=== PATIENT | female | born 1950 | race Caucasian/White ===

== ENCOUNTER 2016-12-16 17:22 | Emergency (ER) | payer OTHER ==
[~2016-12-16] VITALS: Ht 167.6 cm; Wt 62.0 kg
[~2016-12-16 17:22] MED LIST: BACTRIM DS1 TAB PO; EFFEXOR XR75 MG PO; XANAX0.25 MG PO
[2016-12-16] MEDS ORDERED: ALPRAZOLAM0.5 M2 PO (18:21)
[2016-12-16 20:35] LABS: HEMATOCRIT 43.6 % (37.0-47.0); HEMOGLOBIN 13.9 g/dl (12.0-16.0); IMMATURE GRANULOCYTES 0.2 % (0.0-1.0); MEAN CELL VOLUME 90.3 fL CALC (80.0-100.0); MEAN CORPUSCULAR HGB 28.8 pG CALC (26.0-32.0); MEAN CORPUSCULAR HGB CONC 31.9 g/L CALC (32.0-36.0); NEUT# 4.45 thou/uL (2.00-7.15); RED BLOOD COUNT 4.83 mill/uL (4.20-5.60)
[2016-12-16 20:59] LABS: ALBUMIN 4.5 g/dL (3.2-5.0); ALKALINE PHOSPHATASE 90 u/l (38-126); ANION GAP 15 (6-22 (CALC)); BILIRUBIN, TOTAL 0.4 mg/dL (0.0-1.4); BUN 13 mg/dL (8-23); BUN/CREATININE RATIO 20 (12-20 (CALC)); CALCIUM 9.8 mg/dL (8.4-10.2); CARBON DIOXIDE 27 mmol/l (22-30); CHLORIDE 103 mmol/l (95-108); CREATININE 0.7 mg/dL (0.5-1.0); GFR > 60 ML/MIN (>=60 (CALC)); GFR FOR AFR.AMER. > 60 ML/MIN (>=60 (CALC)); GLUCOSE 83 mg/dL (82-115); POTASSIUM 4.1 mmol/l (3.5-5.1); SGOT/AST 19 u/l (9-36); SGPT/ALT 25 u/l (11-66); SODIUM 142 mmol/l (137-146)
[2016-12-16] MEDS ORDERED: KEFLEX500 M1 PO (22:26)
[2016-12-16] MEDS ORDERED: PERCOCET 5/325M1 TAB PO (22:26)
[2016-12-16 22:35] VITALS: BP 122/74
== END 2016-12-16 22:35 | disposition home or self-care (01) | DRG 607 ==
LOC: ED 17:22
PROVIDERS: Emergency Medicine
DX: R22.31 Localized swelling, mass and lump, right upper limb (principal); M79.644 Pain in right finger(s)

== ENCOUNTER 2017-10-10 01:52 | Inpatient (IN) | payer OTHER, MEDICARE ==
[~2017-10-10] VITALS: Ht 167.6 cm; Wt 62.7 kg
[~2017-10-10 01:52] MED LIST changes: +ALPRAZOLAM0.5 M2 PO; +KEFLEX500 M1 PO; +PERCOCET 5/325M1 TAB PO
--- NOTE | 2017-10-10 02:07 | NUR ---
PT. TO ROOM 10 VIA EMS WITH C/O AWAKINING WITH A MIDSTERNAL CP. EMS ADMINISTERED ASA AND NITROGLYCERIN. PT. STATES HER CP IS COMPLETLY RESOLVED OF THIS TIME.
[2017-10-10 02:20] LABS: HEMATOCRIT 42.1 % (37.0-47.0); HEMOGLOBIN 13.6 g/dl (12.0-16.0); IMMATURE GRANULOCYTES 0.2 % (0.0-1.0); MEAN CELL VOLUME 90.3 fL CALC (80.0-100.0); MEAN CORPUSCULAR HGB 29.2 pG CALC (26.0-32.0); MEAN CORPUSCULAR HGB CONC 32.3 g/L CALC (32.0-36.0); NEUT# 4.85 thou/uL (2.00-7.15); RED BLOOD COUNT 4.66 mill/uL (4.20-5.60); RED CELL DISTRI WIDTH 12.1 % (11.5-15.5)
[2017-10-10 02:26] LABS: ALBUMIN 3.9 g/dL (3.2-5.0); ALKALINE PHOSPHATASE 98 u/l (38-126); AMYLASE 41 u/l (30-110); ANION GAP 14 (6-22 (CALC)); BILIRUBIN, TOTAL 0.2 mg/dL (0.0-1.4); BUN 19 mg/dL (8-23); BUN/CREATININE RATIO 23 (12-20 (CALC)); CARBON DIOXIDE 27 mmol/l (22-30); CHLORIDE 105 mmol/l (95-108); CREATININE 0.9 mg/dL (0.5-1.0); GFR > 60 ML/MIN (>=60 (CALC)); GFR FOR AFR.AMER. > 60 ML/MIN (>=60 (CALC)); LIPASE 41 u/l (23-300); SGOT/AST 31 u/l (9-36); SGPT/ALT 21 u/l (11-66); SODIUM 142 mmol/l (137-146); TOTAL PROTEIN 6.5 g/dL (6.3-8.2)
[2017-10-10 02:39] LABS: MYOGLOBIN 20 ng/mL (0 - 62)
[2017-10-10 03:04] LABS: URINE BILIRUBIN - DIPSTICK NEGATIVE (NEGATIVE); URINE BLOOD DIPSTICK MODERATE (NEGATIVE); URINE COLOR YELLOW; URINE GLUCOSE - DIPSTICK NEGATIVE (NEGATIVE); URINE KETONE NEGATIVE (NEGATIVE); URINE LEUK ESTERASE NEGATIVE (NEGATIVE); URINE NITRITE - DIPSTICK NEGATIVE (Negative); URINE PH 6.5 (4.5-8.0); URINE PROTEIN - DIPSTICK TRACE mg/dL (NEG-TRACE); URINE SPECIFIC GRAVITY 1.025; URINE UROBILINOGEN - DIPSTICK 0.2 E.U./dL (0.2)
[2017-10-10 03:12] LABS: URINE CLARITY SL CLOUDY
[2017-10-10 03:27] LABS: URINE AMORPH SEDIMENT FEW hpf (NONE-FEW); URINE BACTERIA FEW hpf; URINE FINE GRAN CAST FEW lpf; URINE HYALINE CAST FEW lpf (NONE-RARE); URINE SQUAMOUS EPITHELIAL CELL RARE EPI/hpf (0-FEW); URINE WBC 0-2 WBC/hpf (0-5)
--- NOTE | 2017-10-10 04:05 | NUR ---
PT GIVEN LOPRESSOR P.O. AFTER MED/SURG NOT COMFORTABLE ACCEPTING PT WITH 177/84 BP. ATTEMPTING TO LOWER SYTOLIC PRESSURE SLOWLY.
[2017-10-10 04:15] VITALS: BP 123/73
--- NOTE | 2017-10-10 04:15 | NUR ---
PT ARRIVED TO FLOOR WITH ER STAFF. PT AMBULATED TO BED. WEIGHT & VITALS OBTAINED. PT ORIENTED TO ROOM AND CALL LIGHT SYSTEM. PT DENIES ANY PAIN OR DISCOMFORT. RESP EVEN AND UNLABORED; NO DISTRESS NOTED. FAMILY AT BEDSIDE. PT ENCOURAGED TO CALL FOR ASSISTANCE. NITROL OINTMENT ON LEFT SIDE OF CHEST NOTED. FREQUENT ROUNDS MADE. CALL LIGHT WITHIN REACH.
--- NOTE | 2017-10-10 04:26 | NUR ---
Pt transported to floor room 272 via cot. Telemetry on. Family accompanied to room.
[2017-10-10 06:21] VITALS: BP 133/68
--- NOTE | 2017-10-10 07:30 | NUR ---
REPORT RECEIVED FROM NIGHT NURSE. PT.APPEARS TO BE SLEEPING AT THIS TIME. CALL LIGHT IS AT SIDE AND NO S/S OF DISTRESS NOTED AT THIS TIME.
[2017-10-10 08:00] VITALS: BP 113/67
[2017-10-10 09:10] LABS: CHOLESTEROL HDL RATIO 3.6 (<4.4 (CALC))
[2017-10-10 11:29] VITALS: BP 155/76
--- NOTE | 2017-10-10 11:33 | NUR ---
CRITICAL CALLED FROM LAB BY MICHAEL FOR CRITICAL TROPONIN LEVEL OF 0.165. AND ALMA GREGORY ARE BOTH ON UNIT FLOOR AND WERE NOTIFIED @1115. V/S ASSESSED BP155/76,HR78. PT.IS ASYMPTOMATIC. BRI IS IN W/PT.AT THIS TIME. EKG ORDERED AND CONSULTATION FOR HAS BEEN PLACED. FAMILY IS AT BEDSIDE.
--- NOTE | 2017-10-10 11:50 | NUR ---
ORDERED LOVONOX, ASPIRIN FOR PT.AND LOPRESSOR AND THEN INSTRUCTED TO HOLD THE LOPRESSOR AT THIS TIME.
--- NOTE | 2017-10-10 12:43 | NUR ---
POC DISCUSSED W/PT. AND PT.MEDICATED W/LOPRESSOR FOR BP 155/76 ORDERED.HR78 AT THIS TIME. PT.ASSISTED AMBULATING TO RESTROOM AND BACK TO BED. FAMILY AT BEDSIDE.
--- NOTE | 2017-10-10 13:55 | NUR ---
LAB CALLED W/CRITICAL TROPONIN LEVEL OF 0.161 TO JUNIOR ZAMORA. BRI MARQUEZ NOTIFIED. PT.REMAINS ASYMPTOMATIC AT THIS TIME. FAMILY IS AT BEDSIDE
[2017-10-10 14:49] VITALS: BP 152/75
--- NOTE | 2017-10-10 15:07 | NUR ---
CRITICAL LAB RESULTS CALLED FROM [facility] IN LAB. TROPONIN 0.161, BRI MARQUEZ AND LYNETTE PACHECO NOTIFIED.
--- NOTE | 2017-10-10 15:52 | NUR ---
PT.LEFT THE FLOOR VIA STRETCHER ACCOMPANIED BY [facility] UNIT STAFF AND FAMILY. PT.WAS IN STABLE CONDITION AT THE TIME OF LEAVING THE FLOOR. REPORT CALLED TO LENKA OF [facility].
== END 2017-10-10 15:38 | disposition short-term general hospital (02) | DRG 282 ==
LOC: ED 01:52 → ED-I 02:25 → ED 02:25 → ED-I 02:45 → ED 02:54 → MS2 02:55
PROVIDERS: Emergency Medicine; Nurse Practitioner Family; ADMIT Internal Medicine; ATTEND Internal Medicine
DX: I21.4 Non-ST elevation (NSTEMI) myocardial infarction (principal); E78.5 Hyperlipidemia, unspecified; I16.0 Hypertensive urgency; I10 Essential (primary) hypertension; F17.210 Nicotine dependence, cigarettes, uncomplicated; G89.4 Chronic pain syndrome; F41.9 Anxiety disorder, unspecified; M62.838 Other muscle spasm; S19.9XXS Unspecified injury of neck, sequela; X58.XXXS Exposure to other specified factors, sequela
CPT/HCPCS: J1650

== ENCOUNTER 2017-10-23 23:39 | Observation (INO) | payer OTHER ==
[~2017-10-23] VITALS: Ht 167.6 cm; Wt 62.7 kg
[2017-10-23] MEDS ORDERED: ASPIRIN81 MG PO (23:56)
[2017-10-23] MEDS ORDERED: ATORVASTATIN CA80 MG PO (23:57)
[2017-10-23] MEDS ORDERED: BRILINTA90 MG PO (23:58)
[2017-10-23] MEDS ORDERED: METOPROL TAR25 MG PO (23:58)
[2017-10-23] MEDS ORDERED: LISINOPRIL5 MG PO (23:58)
[2017-10-24 00:29] LABS: HEMATOCRIT 40.5 % (37.0-47.0); HEMOGLOBIN 13.2 g/dl (12.0-16.0); IMMATURE GRANULOCYTES 0.3 % (0.0-1.0); MEAN CELL VOLUME 89.6 fL CALC (80.0-100.0); MEAN CORPUSCULAR HGB 29.2 pG CALC (26.0-32.0); MEAN CORPUSCULAR HGB CONC 32.6 g/L CALC (32.0-36.0); NEUT# 6.57 thou/uL (2.00-7.15); RED BLOOD COUNT 4.52 mill/uL (4.20-5.60); RED CELL DISTRI WIDTH 11.9 % (11.5-15.5)
[2017-10-24 00:55] LABS: ACT PARTIAL THROMBO TIME 26.9 SECONDS (20.0-32.5); PROTHROMBIN TIME 10.7 SECONDS (9.0-12.5)
[2017-10-24 01:05] LABS: ALBUMIN 3.9 g/dL (3.2-5.0); ALKALINE PHOSPHATASE 132 u/l (38-126); AMYLASE < 30 u/l (30-110); ANION GAP 17 (6-22 (CALC)); BUN 15 mg/dL (8-23); CARBON DIOXIDE 25 mmol/l (22-30); CHLORIDE 106 mmol/l (95-108); LIPASE 35 u/l (23-300); SGOT/AST 17 u/l (9-36); SGPT/ALT 28 u/l (11-66); SODIUM 144 mmol/l (137-146); TOTAL PROTEIN 6.6 g/dL (6.3-8.2)
[2017-10-24 01:07] LABS: BILIRUBIN, TOTAL 0.3 mg/dL (0.0-1.4); BUN/CREATININE RATIO 25 (12-20 (CALC)); CREATININE 0.6 mg/dL (0.5-1.0); GFR > 60 ML/MIN (>=60 (CALC)); GFR FOR AFR.AMER. > 60 ML/MIN (>=60 (CALC))
[2017-10-24 01:17] LABS: MYOGLOBIN 15 ng/mL (0 - 62)
[2017-10-24 02:30] VITALS: BP 123/62
[2017-10-24 03:59] VITALS: BP 133/59
[2017-10-24 07:29] VITALS: BP 115/52
[2017-10-24 09:09] LABS: CALCULATED LDLCHOLESTEROL 75 mg/dL (62-129 (CALC)); CHOLESTEROL HDL RATIO 2.8 (<4.4 (CALC)); HDL CHOLESTEROL 51 mg/dL (>=40); MAGNESIUM 1.9 mg/dL (1.6-2.3); TOTAL CHOLESTEROL 143 mg/dl (0-199); TOTAL TRIGLYCERIDES 85 mg/dl (30-149); VLDL CHOLESTROL 17 mg/dl (1-41 (CALC))
[2017-10-24 09:50] VITALS: BP 108/52
[2017-10-24 11:09] VITALS: BP 128/57
[2017-10-24 15:35] VITALS: BP 130/50
[2017-10-24] MEDS ORDERED: NITROGLYCE0.4 MG/SPR SL (17:56)
[2017-10-24 19:00] LABS: URINE BILIRUBIN - DIPSTICK NEGATIVE (NEGATIVE); URINE BLOOD DIPSTICK MODERATE (NEGATIVE); URINE COLOR YELLOW; URINE GLUCOSE - DIPSTICK NEGATIVE (NEGATIVE); URINE KETONE NEGATIVE (NEGATIVE); URINE LEUK ESTERASE NEGATIVE (NEGATIVE); URINE NITRITE - DIPSTICK NEGATIVE (Negative); URINE PROTEIN - DIPSTICK NEGATIVE (NEG-TRACE); URINE SPECIFIC GRAVITY 1.015; URINE UROBILINOGEN - DIPSTICK 0.2 E.U./dL (0.2)
[2017-10-24 19:02] LABS: URINE CLARITY CLEAR
== END 2017-10-24 18:33 | disposition home or self-care (01) | DRG 282 ==
LOC: ED 23:39 → ED-I 23:46 → ED 23:46 → ED-I 10-24 01:40 → ED 10-24 02:04 → MS2 10-24 02:05
PROVIDERS: Emergency Medicine; ADMIT Internal Medicine; ATTEND Internal Medicine
DX: R07.89 Other chest pain (principal); I21.4 Non-ST elevation (NSTEMI) myocardial infarction; E78.5 Hyperlipidemia, unspecified; F17.210 Nicotine dependence, cigarettes, uncomplicated; I25.119 Atherosclerotic heart disease of native coronary artery with unspecified angina pectoris; I10 Essential (primary) hypertension; F41.9 Anxiety disorder, unspecified; G89.4 Chronic pain syndrome; M62.830 Muscle spasm of back; S19.9XXS Unspecified injury of neck, sequela; X58.XXXS Exposure to other specified factors, sequela; Z95.5 Presence of coronary angioplasty implant and graft
CPT/HCPCS: G0378

== ENCOUNTER 2018-01-13 09:49 | Emergency (ER) | payer OTHER ==
[~2018-01-13] VITALS: Ht 167.6 cm; Wt 61.0 kg
[~2018-01-13 09:49] MED LIST changes: +ASPIRIN81 MG PO; +ATORVASTATIN CA80 MG PO; +BRILINTA90 MG PO; +LISINOPRIL5 MG PO; +METOPROL TAR25 MG PO; +NITROGLYCE0.4 MG/SPR SL
[2018-01-13 10:55] LABS: HEMATOCRIT 43.1 % (37.0-47.0); HEMOGLOBIN 13.9 g/dl (12.0-16.0); IMMATURE GRANULOCYTES 0.4 % (0.0-1.0); MEAN CELL VOLUME 89.4 fL CALC (80.0-100.0); MEAN CORPUSCULAR HGB 28.8 pG CALC (26.0-32.0); MEAN CORPUSCULAR HGB CONC 32.3 g/L CALC (32.0-36.0); NEUT# 4.9 thou/uL (2.00-7.15); RED BLOOD COUNT 4.82 mill/uL (4.20-5.60); RED CELL DISTRI WIDTH 12.4 % (11.5-15.5); URINE BILIRUBIN - DIPSTICK NEGATIVE (NEGATIVE); URINE BLOOD DIPSTICK MODERATE (NEGATIVE); URINE COLOR YELLOW; URINE GLUCOSE - DIPSTICK NEGATIVE (NEGATIVE); URINE KETONE NEGATIVE (NEGATIVE); URINE LEUK ESTERASE NEGATIVE (NEGATIVE); URINE NITRITE - DIPSTICK NEGATIVE (Negative); URINE PH 6.5 (4.5-8.0); URINE PROTEIN - DIPSTICK NEGATIVE (NEG-TRACE); URINE SPECIFIC GRAVITY <=1.005; URINE UROBILINOGEN - DIPSTICK 0.2 E.U./dL (0.2)
[2018-01-13 10:56] LABS: URINE CLARITY SL CLOUDY
[2018-01-13 11:01] LABS: URINE RBC 0-2 RBC/hpf (0-5)
[2018-01-13 11:10] LABS: ALBUMIN 4.2 g/dL (3.2-5.0); ALKALINE PHOSPHATASE 109 u/l (38-126); AMYLASE 31 u/l (30-110); ANION GAP 16 (6-22 (CALC)); BILIRUBIN, TOTAL 0.5 mg/dL (0.0-1.4); BUN 14 mg/dL (8-23); BUN/CREATININE RATIO 19 (12-20 (CALC)); CARBON DIOXIDE 26 mmol/l (22-30); CHLORIDE 104 mmol/l (95-108); CREATININE 0.7 mg/dL (0.5-1.0); GFR > 60 ML/MIN (>=60 (CALC)); GFR FOR AFR.AMER. > 60 ML/MIN (>=60 (CALC)); LIPASE 29 u/l (23-300); POTASSIUM 4.2 mmol/l (3.5-5.1); SGOT/AST 17 u/l (9-36); SGPT/ALT 31 u/l (11-66); SODIUM 142 mmol/l (137-146); TOTAL PROTEIN 7.4 g/dL (6.3-8.2)
[2018-01-13] MEDS ORDERED: COLACE100 MG PO (11:55)
[2018-01-13] MEDS ORDERED: MAGNESIUM296 ML/BTL PO (11:55)
[2018-01-13] MEDS ORDERED: MIRALAX3350 N1 PO (11:55)
[2018-01-13 11:57] VITALS: BP 177/76
== END 2018-01-13 12:02 | disposition home or self-care (01) | DRG 392 ==
LOC: ED 09:49
PROVIDERS: Emergency Medicine
DX: K59.00 Constipation, unspecified (principal); I11.9 Hypertensive heart disease without heart failure; I25.2 Old myocardial infarction

== ENCOUNTER 2019-03-25 15:38 | Emergency (ER) | payer OTHER, MEDICARE ==
[~2019-03-25] VITALS: Ht 167.6 cm; Wt 61.4 kg
[~2019-03-25 15:38] MED LIST changes: +COLACE100 MG PO; +MAGNESIUM296 ML/BTL PO; +MIRALAX3350 N1 PO
[2019-03-25] MEDS ORDERED: PREDNISONE50 MG PO (16:00)
[2019-03-25] MEDS ORDERED: DOXYCYC MONO100 M2 PO (16:00)
[2019-03-25 16:21] VITALS: BP 134/76
== END 2019-03-25 16:37 | disposition home or self-care (01) | DRG 203 ==
LOC: ED 15:38
DX: J40 Bronchitis, not specified as acute or chronic (principal); I10 Essential (primary) hypertension; F17.210 Nicotine dependence, cigarettes, uncomplicated; I25.2 Old myocardial infarction

== ENCOUNTER 2021-01-27 12:46 | Emergency (ER) | payer MEDICARE ==
[~2021-01-27] VITALS: Ht 167.6 cm; Wt 68.1 kg
[~2021-01-27 12:46] MED LIST changes: +BUPROPION HCL150 M2 PO; +DOXYCYC MONO100 M2 PO; +LISINOPRIL20 MG PO; +PREDNISONE50 MG PO
[2021-01-27 13:54] VITALS: BP 158/82
== END 2021-01-27 14:00 | disposition home or self-care (01) ==
LOC: ED 12:46
DX: L98.9 Disorder of the skin and subcutaneous tissue, unspecified (principal); I10 Essential (primary) hypertension; I25.2 Old myocardial infarction; F41.9 Anxiety disorder, unspecified; Z85.828 Personal history of other malignant neoplasm of skin; F17.200 Nicotine dependence, unspecified, uncomplicated